=== PATIENT | male | born 1940 | race Caucasian/White ===

== ENCOUNTER 2022-09-02 12:36 | Emergency (ER) | payer OTHER, BC ==
[~2022-09-02] VITALS: Ht 182.9 cm; Wt 78.0 kg
[2022-09-02 12:48] VITALS: BP_SYST 160
[2022-09-02 15:00] VITALS: BP_SYST 142
== END 2022-09-02 15:00 | disposition home or self-care (01) ==
LOC: SED 12:36
DX: I10 Essential (primary) hypertension (principal); R51.9 Headache, unspecified; R42 Dizziness and giddiness; E11.9 Type 2 diabetes mellitus without complications; Z79.899 Other long term (current) drug therapy
CPT/HCPCS: 82962; 93005; 99283

== ENCOUNTER 2022-10-09 15:43 | Emergency (ER) | payer OTHER, BC ==
[~2022-10-09] VITALS: Ht 182.9 cm; Wt 68.0 kg
--- NOTE | 2022-10-09 16:48 | NUR ---
DR. BROWN IN TRIAGE EXAMINING PATIENT.
--- NOTE | 2022-10-09 17:02 | NUR ---
PATIENT BROUGTH IN COMPLAINING OF POSSIBLE BILATERAL DVTS WAS REFERRED BY ASSISTANT MANAGER AIRSIDE OPERATIONS. DENIES ANYU PAIN. NO SWELLING NOTED PAIN 0/10
[2022-10-09 17:22] VITALS: BP_SYST 167
[2022-10-09 17:30] LABS: BASOPHILS % (AUTO) 0.6 % (0.0-2.0); EOSINOPHILS # (AUTO) 0.2 K/uL (0.0-0.4); EOSINOPHILS % (AUTO) 3.4 % (0.0-4.0); HEMATOCRIT 39.3 % (36-54); HEMOGLOBIN 13.2 g/dL (14.0-18.0); LYMPHOCYTES # (AUTO) 1.6 K/uL (1.0-5.5); LYMPHOCYTES % (AUTO) 22.4 % (20.5-51.5); MEAN CORPUSCULAR HEMOGLOBIN 34 pg (27-31); MEAN CORPUSCULAR HGB CONC 34 % (32-36); MEAN CORPUSCULAR VOLUME 101 fL (79.0-98.0); MONOCYTES # (AUTO) 0.5 K/uL (0.0-1.0); MONOCYTES % (AUTO) 6.9 % (1.7-9.3); NEUTROPHILS # (AUTO) 4.8 K/uL (1.8-7.7); NEUTROPHILS % (AUTO) 66.7 % (40.0-70.0); PLATELET COUNT (AUTO) 187 K/uL (130-430); RED CELL DISTRIBUTION WIDTH 12.4 % (9.0-15.0); WHITE BLOOD COUNT (AUTO) 7.2 K/uL (4.8-10.8)
[2022-10-09 17:36] LABS: ANION GAP 9 (5-15); CALCIUM 8.7 mg/dL (8.4-11.0); CHLORIDE 101 mmol/L (98-107); CREATININE 1.21 mg/dL (0.55-1.30); GLUCOSE 176 mg/dL (70-99); UREA NITROGEN, BLOOD 21 mg/dL (8-21)
[2022-10-09 19:56] VITALS: BP_SYST 132
--- NOTE | 2022-10-09 19:56 | NUR ---
Patient given written and verbal discharge instructions and verbalizes understanding. ER MD discussed with patient the results and treatment provided. Patient in stable condition. ID arm band removed. NO RX given. Patient educated on pain management and to follow up with PMD. Pain Scale 0/10 Opportunity for questions provided and answered. Medication side effect fact sheet provided.
== END 2022-10-09 19:56 | disposition home or self-care (01) ==
LOC: SED 15:43
DX: I73.9 Peripheral vascular disease, unspecified (principal); E11.9 Type 2 diabetes mellitus without complications; I10 Essential (primary) hypertension; Z79.899 Other long term (current) drug therapy
CPT/HCPCS: 36415; 80048; 85025; 93970; 99284

== ENCOUNTER 2022-10-22 07:53 | Outpatient (CLI) | payer OTHER, BC | END 2022-10-22 19:04 | disposition home or self-care (01) | LOC: SUS 07:53 | DX: N40.0 Benign prostatic hyperplasia without lower urinary tract symptoms (principal); R33.9 Retention of urine, unspecified; J90 Pleural effusion, not elsewhere classified; R10.9 Unspecified abdominal pain | CPT/HCPCS: 76700-TC; 76856-TC ==

== ENCOUNTER 2023-07-25 09:20 | Inpatient (IN) | payer OTHER, BC ==
[~2023-07-25] VITALS: Ht 182.9 cm; Wt 79.4 kg
[2023-07-25 09:20] VITALS: BP_SYST 185; PULSE 52; RESP 18; TEMP 98.1; O2SAT 98
[2023-07-25] MEDS ORDERED: cloNIDine HCL 0.1 MG TABLET PO ONE (09:45)
[2023-07-25 09:58] LABS: BASOPHILS % (AUTO) 0.6 % (0.0-2.0); EOSINOPHILS # (AUTO) 0.2 K/uL (0.0-0.4); EOSINOPHILS % (AUTO) 2.5 % (0.0-4.0); HEMATOCRIT 38.3 % (36-54); HEMOGLOBIN 12.7 g/dL (14.0-18.0); LYMPHOCYTES # (AUTO) 1.2 K/uL (1.0-5.5); MEAN CORPUSCULAR HEMOGLOBIN 33 pg (27-31); MEAN CORPUSCULAR HGB CONC 33 % (32-36); MEAN CORPUSCULAR VOLUME 101 fL (79.0-98.0); MONOCYTES # (AUTO) 0.4 K/uL (0.0-1.0); MONOCYTES % (AUTO) 5.7 % (1.7-9.3); NEUTROPHILS # (AUTO) 4.5 K/uL (1.8-7.7); NEUTROPHILS % (AUTO) 72.2 % (40.0-70.0); PLATELET COUNT (AUTO) 194 K/uL (130-430); RED BLOOD CELL COUNT(AUTO) 3.81 MIL/uL (4.2-6.2); RED CELL DISTRIBUTION WIDTH 12.9 % (9.0-15.0); WHITE BLOOD COUNT (AUTO) 6.2 K/uL (4.8-10.8)
[2023-07-25 10:08] LABS: ANION GAP 8 (5-15); CALCIUM 8.8 mg/dL (8.4-11.0); CARBON DIOXIDE 27 mmol/L (23-29); CHLORIDE 102 mmol/L (98-107); GLUCOSE 234 mg/dL (74-106); POTASSIUM 4.8 mmol/L (3.5-5.1); SODIUM SERUM 137 mmol/L (136-145); UREA NITROGEN, BLOOD 22 mg/dL (8-21)
[2023-07-25 10:27] LABS: ALANINE AMINOTRANSFERASE 42 U/L (12-78); ALBUMIN 3.7 g/dL (3.4-4.8); ASPARTATE AMINOTRANSFERASE 20 U/L (10-37); TOTAL BILIRUBIN 0.4 mg/dL (0.0-1.0); TOTAL PROTEIN, SERUM 7.3 g/dL (6.4-8.3)
[2023-07-25] MEDS ORDERED: ASPIRIN 81 MG TABLET(ECOTRIN) PO ONE (10:30)
[2023-07-25] MEDS ORDERED: MORPHINE 2 MG/ML INJ. SYRINGE IVP PRN (12:45)
[2023-07-25] MEDS ORDERED: HYDROcodone/ACETAMIN 7.5-325 MG TAB PO PRN (12:45)
[2023-07-25] MEDS ORDERED: ONDANSETRON HCL 4 MG/2 ML VIAL IVP PRN (12:45)
[2023-07-25] MEDS ORDERED: ACETAMINOPHEN 325 MG TABLET PO PRN ×2 (12:45)
[2023-07-25] MEDS ORDERED: HUM10VIA3 SUBCUT (13:18)
[2023-07-25] MEDS ORDERED: VALS40TA12 PO (13:18)
[2023-07-25] MEDS ORDERED: METF-380 PO (13:18)
[2023-07-25] MEDS ORDERED: METO-540 PO (13:18)
[2023-07-25 14:10] VITALS: BP_SYST 159; PULSE 47; RESP 18; TEMP 96.9; O2SAT 99
[2023-07-25 14:22] LABS: BASOPHILS % (AUTO) 0.3 % (0.0-2.0); EOSINOPHILS # (AUTO) 0.2 K/uL (0.0-0.4); EOSINOPHILS % (AUTO) 2.6 % (0.0-4.0); HEMATOCRIT 41.1 % (36-54); HEMOGLOBIN 13.5 g/dL (14.0-18.0); LYMPHOCYTES # (AUTO) 1.6 K/uL (1.0-5.5); LYMPHOCYTES % (AUTO) 27.1 % (20.5-51.5); MEAN CORPUSCULAR HEMOGLOBIN 33 pg (27-31); MEAN CORPUSCULAR HGB CONC 33 % (32-36); MEAN CORPUSCULAR VOLUME 101 fL (79.0-98.0); MONOCYTES # (AUTO) 0.3 K/uL (0.0-1.0); MONOCYTES % (AUTO) 5.1 % (1.7-9.3); NEUTROPHILS # (AUTO) 3.7 K/uL (1.8-7.7); NEUTROPHILS % (AUTO) 64.9 % (40.0-70.0); PLATELET COUNT (AUTO) 183 K/uL (130-430); RED BLOOD CELL COUNT(AUTO) 4.08 MIL/uL (4.2-6.2); RED CELL DISTRIBUTION WIDTH 12.9 % (9.0-15.0); WHITE BLOOD COUNT (AUTO) 5.8 K/uL (4.8-10.8)
[2023-07-25 14:33] LABS: ANION GAP 9 (5-15); CALCIUM 9.6 mg/dL (8.4-11.0); CARBON DIOXIDE 28 mmol/L (23-29); CHLORIDE 104 mmol/L (98-107); CREATININE 1.21 mg/dL (0.55-1.30); GLUCOSE 127 mg/dL (74-106); POTASSIUM 4.4 mmol/L (3.5-5.1); SODIUM SERUM 141 mmol/L (136-145); UREA NITROGEN, BLOOD 21 mg/dL (8-21)
[2023-07-25 14:36] LABS: HEMOGLOBIN A1C 6.46 % (<5.7)
[2023-07-25 14:42] LABS: INR 1.1 (0.80-1.20)
[2023-07-25 14:52] LABS: AMYLASE 65 U/L (0-100); CHOLESTEROL 163 mg/dL (<200); FREE T4 (FREE THYROXINE) 0.9 ng/dL (0.6-1.6); HDL CHOLESTEROL 49 mg/dL (>45); LIPASE 13 U/L (16-77); PHOSPHORUS 3.6 mg/dL (2.7-4.5); THYROID STIMULATING HORMONE 1.13 uIu/mL (0.34-4.82); TRIGLYCERIDES 103 mg/dL (30-150)
[2023-07-25] MEDS ORDERED: LOSARTAN POTASSIUM 50 MG TABLET (COZAAR) PO ONE (15:15)
[2023-07-25] MEDS ORDERED: hydrALAZINE HCL 20 MG/ML VIAL IVP PRN (15:15)
[2023-07-25] MEDS ORDERED: INSULIN REGULAR, HUMAN 100 UNITS/ML, 3 ML VIAL (humuLIN R) SUBCUT PRN (15:30)
[2023-07-25 16:00] VITALS: BP_SYST 152; PULSE 48; RESP 16; TEMP 97.3; O2SAT 97
[2023-07-25] MEDS: NACL 0.9% 1,000 ML IV SCH (16:00)
[2023-07-25 19:15] LABS: BARBITURATE, URINE NEGATIVE (NEG <=200); BENZODIAZEPINE, URINE NEGATIVE (NEG <=150); CANNABINOID, URINE NEGATIVE (NEG <=50); COCAINE, URINE NEGATIVE (NEG <=150); METHAMPHETAMINES SCREEN,URINE NEGATIVE (NEG <=500); OPIATE, URINE NEGATIVE (NEG <=100); PHENCYCLIDINE SCREEN,URINE NEGATIVE (NEG <=25); UR TRICYCLIC ANTIDEPRESSANTS NEGATIVE (NEG <=300); URINE AMPHETAMINE NEGATIVE (NEG <=500); URINE METHADONE NEGATIVE (NEG <=200); URINE OXYCODONE SCREEN NEGATIVE (NEG <=100); URINE PROPOXYPHENE SCREEN NEGATIVE (NEG <=300)
[2023-07-25 20:00] VITALS: BP_SYST 135; PULSE 46; RESP 18; TEMP 97.8; O2SAT 98
[2023-07-25] MEDS: LOSARTAN POTASSIUM 50 MG TABLET (COZAAR) PO SCH (20:48)
[2023-07-25] MEDS: DOCUSATE SODIUM 100 MG CAPSULE PO SCH (20:48)
[2023-07-25] MEDS ORDERED: MELATONIN 5 MG TABLET PO SCH (21:00)
[2023-07-26] MEDS: NACL 0.9% 1,000 ML IV SCH ×2 (02:00→08:45)
[2023-07-26 02:17] VITALS: BP_SYST 136; PULSE 80; RESP 18; TEMP 97.7; O2SAT 98
[2023-07-26 06:38] LABS: BASOPHILS % (AUTO) 0.5 % (0.0-2.0); EOSINOPHILS # (AUTO) 0.2 K/uL (0.0-0.4); EOSINOPHILS % (AUTO) 3.4 % (0.0-4.0); HEMATOCRIT 35.6 % (36-54); HEMOGLOBIN 11.7 g/dL (14.0-18.0); LYMPHOCYTES # (AUTO) 1.3 K/uL (1.0-5.5); LYMPHOCYTES % (AUTO) 22.3 % (20.5-51.5); MEAN CORPUSCULAR HEMOGLOBIN 33 pg (27-31); MEAN CORPUSCULAR HGB CONC 33 % (32-36); MEAN CORPUSCULAR VOLUME 100 fL (79.0-98.0); MONOCYTES # (AUTO) 0.4 K/uL (0.0-1.0); MONOCYTES % (AUTO) 7.7 % (1.7-9.3); NEUTROPHILS # (AUTO) 3.8 K/uL (1.8-7.7); NEUTROPHILS % (AUTO) 66.1 % (40.0-70.0); PLATELET COUNT (AUTO) 173 K/uL (130-430); RED BLOOD CELL COUNT(AUTO) 3.55 MIL/uL (4.2-6.2); RED CELL DISTRIBUTION WIDTH 12.9 % (9.0-15.0); WHITE BLOOD COUNT (AUTO) 5.8 K/uL (4.8-10.8)
[2023-07-26 06:44] LABS: ALANINE AMINOTRANSFERASE 32 U/L (12-78); ALBUMIN 3.1 g/dL (3.4-4.8); ANION GAP 8 (5-15); ASPARTATE AMINOTRANSFERASE 14 U/L (10-37); CALCIUM 8.7 mg/dL (8.4-11.0); CARBON DIOXIDE 26 mmol/L (23-29); CHLORIDE 105 mmol/L (98-107); CREATININE 1.08 mg/dL (0.55-1.30); GLUCOSE 157 mg/dL (74-106); POTASSIUM 3.9 mmol/L (3.5-5.1); SODIUM SERUM 139 mmol/L (136-145); TOTAL BILIRUBIN 0.5 mg/dL (0.0-1.0); TOTAL PROTEIN, SERUM 6.2 g/dL (6.4-8.3); UREA NITROGEN, BLOOD 20 mg/dL (8-21)
[2023-07-26 08:00] VITALS: BP_SYST 138; PULSE 48; RESP 16; TEMP 98.1; O2SAT 100; O2SAT 98
[2023-07-26] MEDS ORDERED: ASPIRIN 81 MG TABLET(ECOTRIN) PO SCH (09:00)
[2023-07-26] MEDS ORDERED: ATORVASTATIN 20 MG TABLET PO SCH (09:00)
[2023-07-26] MEDS: DOCUSATE SODIUM 100 MG CAPSULE PO SCH (09:24)
[2023-07-26] MEDS: LOSARTAN POTASSIUM 50 MG TABLET (COZAAR) PO SCH (09:24)
[2023-07-26 11:22] VITALS: BP_SYST 143; PULSE 51; RESP 16; TEMP 97.6; O2SAT 96
[2023-07-26] MEDS ORDERED: LIP20 PO (14:06)
[2023-07-26] MEDS ORDERED: LOSA-413 PO (14:06)
[2023-07-26] MEDS ORDERED: ASPI-1393 PO (14:06)
[2023-07-26 15:05] VITALS: BP_SYST 143; PULSE 51; RESP 16; TEMP 97.6; O2SAT 96
[2023-07-26 15:11] VITALS: BP_SYST 147; PULSE 56; RESP 16; TEMP 97.1; O2SAT 99
== END 2023-07-26 15:45 | disposition home or self-care (01) | DRG 305 ==
LOC: SED 09:20 → STU 12:36 → SMU 13:55 → STU 14:42
PROVIDERS: ADMIT Student in an Organized Health Care Education/Training Program; ATTEND Student in an Organized Health Care Education/Training Program
DX: I16.1 Hypertensive emergency (principal); I10 Essential (primary) hypertension; R00.1 Bradycardia, unspecified; E11.9 Type 2 diabetes mellitus without complications; N40.0 Benign prostatic hyperplasia without lower urinary tract symptoms; Z79.4 Long term (current) use of insulin
CPT/HCPCS: 36415; 70450-TC; 71045; 76376; 80048; 80053; 80061; 80307; 82140; 82150; 82962; 83037; 83605; 83690; 83735; 83880; 84100; 84439; 84443; 84479; 84484; 85025; 85610-TC; 85730-TC; 93005; 93306; 99285; G0378

== ENCOUNTER 2024-02-15 16:53 | Inpatient (IN) | payer OTHER, BC ==
[~2024-02-15] VITALS: Ht 185.4 cm; Wt 91.2 kg
[2024-02-15] MEDS: HEPARIN SODIUM,PORCINE 5,000 UNITS/ML VIAL SUBCUT SCH (01:52)
[~2024-02-15 16:53] MED LIST: ASPI-1393 PO; HUM10VIA3 SUBCUT; LIP20 PO; LOSA-413 PO; METF-380 PO
[2024-02-15 17:01] VITALS: BP_SYST 147; PULSE 60; RESP 15; TEMP 97.4; O2SAT 97
[2024-02-15 17:38] LABS: BASOPHILS # (AUTO) 0.1 K/uL (0.0-0.2); BASOPHILS % (AUTO) 1.1 % (0.0-2.0); EOSINOPHILS # (AUTO) 0.3 K/uL (0.0-0.4); EOSINOPHILS % (AUTO) 3.7 % (0.0-4.0); HEMATOCRIT 37.5 % (36-54); HEMOGLOBIN 12.8 g/dL (14.0-18.0); LYMPHOCYTES # (AUTO) 1.8 K/uL (1.0-5.5); LYMPHOCYTES % (AUTO) 26.3 % (20.5-51.5); MEAN CORPUSCULAR HEMOGLOBIN 34 pg (27-31); MEAN CORPUSCULAR HGB CONC 34 % (32-36); MEAN CORPUSCULAR VOLUME 99 fL (79.0-98.0); MONOCYTES # (AUTO) 0.4 K/uL (0.0-1.0); MONOCYTES % (AUTO) 6.2 % (1.7-9.3); NEUTROPHILS # (AUTO) 4.2 K/uL (1.8-7.7); NEUTROPHILS % (AUTO) 62.7 % (40.0-70.0); PLATELET COUNT (AUTO) 180 K/uL (130-430); RED CELL DISTRIBUTION WIDTH 12.9 % (9.0-15.0); WHITE BLOOD COUNT (AUTO) 6.7 K/uL (4.8-10.8)
[2024-02-15 19:05] LABS: ANION GAP 13 (5-15); CALCIUM 8.9 mg/dL (8.4-11.0); CARBON DIOXIDE 23 mmol/L (23-29); CHLORIDE 105 mmol/L (98-107); CREATININE 1.22 mg/dL (0.55-1.30); GLUCOSE 127 mg/dL (74-106); POTASSIUM 4.4 mmol/L (3.5-5.1); SODIUM SERUM 141 mmol/L (136-145); UREA NITROGEN, BLOOD 15 mg/dL (8-21)
[2024-02-15] MEDS ORDERED: AMLO5TAB92 PO (19:57)
[2024-02-15] MEDS ORDERED: MUPIROCIN 2% TOPICAL OINTMENT 22 GM NS PRN (20:00)
[2024-02-15] MEDS ORDERED: ONDANSETRON HCL 4 MG/2 ML VIAL IVP PRN (20:00)
[2024-02-15] MEDS ORDERED: MAGNESIUM SULFATE 50 ML IV PRN (20:00)
[2024-02-15] MEDS ORDERED: DEXTROSE 50% JECT 50 ML DISP.SYRIN IVP PRN (20:00)
[2024-02-15] MEDS ORDERED: ZOLPIDEM TARTRATE 5 MG TABLET PO PRN (20:00)
[2024-02-15] MEDS ORDERED: MORPHINE 2 MG/ML INJ. SYRINGE IVP PRN ×2 (20:00)
[2024-02-15] MEDS ORDERED: DOCUSATE SODIUM 100 MG CAPSULE PO PRN (20:00)
[2024-02-15] MEDS ORDERED: POTASSIUM CHLORIDE 20 MEQ TABLET.ER PO PRN (20:00)
[2024-02-15] MEDS ORDERED: ACETAMINOPHEN 500 MG TABLET PO PRN ×3 (20:45)
[2024-02-15] MEDS: LOSARTAN POTASSIUM 50 MG TABLET (COZAAR) ONE (21:53)
[2024-02-15] MEDS: LOSARTAN POTASSIUM 50 MG TABLET (COZAAR) PO SCH (22:03)
[2024-02-15 23:11] LABS: INR 1.1 (0.80-1.20); PROTHROMBIN TIME 11.3 SECS (9.5-12.5)
[2024-02-16] VITALS (7 sets, daily range): BP systolic 136–182; PULSE 53–73; RESP 16–18; TEMP 97.6–98.1; O2SAT 96–100
[2024-02-16 04:28] LABS: EOSINOPHILS # (AUTO) 0.3 K/uL (0.0-0.4); EOSINOPHILS % (AUTO) 5.1 % (0.0-4.0); HEMATOCRIT 35.1 % (36-54); HEMOGLOBIN 11.9 g/dL (14.0-18.0); LYMPHOCYTES # (AUTO) 1.4 K/uL (1.0-5.5); LYMPHOCYTES % (AUTO) 27.4 % (20.5-51.5); MEAN CORPUSCULAR HEMOGLOBIN 34 pg (27-31); MEAN CORPUSCULAR HGB CONC 34 % (32-36); MEAN CORPUSCULAR VOLUME 99 fL (79.0-98.0); MONOCYTES # (AUTO) 0.4 K/uL (0.0-1.0); MONOCYTES % (AUTO) 7.6 % (1.7-9.3); NEUTROPHILS % (AUTO) 58.9 % (40.0-70.0); PLATELET COUNT (AUTO) 162 K/uL (130-430); RED BLOOD CELL COUNT(AUTO) 3.53 MIL/uL (4.2-6.2); RED CELL DISTRIBUTION WIDTH 13.3 % (9.0-15.0)
[2024-02-16] MEDS: cloNIDine HCL 0.1 MG TABLET PO PRN (04:55)
[2024-02-16 05:04] LABS: ANION GAP 9 (5-15); CALCIUM 8.6 mg/dL (8.4-11.0); CARBON DIOXIDE 25 mmol/L (23-29); CHLORIDE 108 mmol/L (98-107); CREATININE 1.13 mg/dL (0.55-1.30); GLUCOSE 176 mg/dL (74-106); SODIUM SERUM 142 mmol/L (136-145); UREA NITROGEN, BLOOD 17 mg/dL (8-21)
[2024-02-16] MEDS: ASPIRIN 81 MG TABLET(ECOTRIN) PO SCH (09:59)
[2024-02-16] MEDS: ATORVASTATIN 20 MG TABLET PO SCH (10:00)
[2024-02-16] MEDS: INSULIN LISPRO SLIDING SCALE 100 UNITS/ML, 3 ML VIAL (humaLOG) SUBCUT PRN (11:40)
[2024-02-17] VITALS (9 sets, daily range): BP systolic 148–202; PULSE 58–69; RESP 16–20; TEMP 96.8–98.8; O2SAT 97–100
[2024-02-17 04:42] LABS: BASOPHILS % (AUTO) 0.6 % (0.0-2.0); EOSINOPHILS # (AUTO) 0.3 K/uL (0.0-0.4); EOSINOPHILS % (AUTO) 4.3 % (0.0-4.0); HEMATOCRIT 35.9 % (36-54); HEMOGLOBIN 12.4 g/dL (14.0-18.0); LYMPHOCYTES # (AUTO) 1.9 K/uL (1.0-5.5); MEAN CORPUSCULAR HEMOGLOBIN 34 pg (27-31); MEAN CORPUSCULAR HGB CONC 35 % (32-36); MEAN CORPUSCULAR VOLUME 99 fL (79.0-98.0); MONOCYTES # (AUTO) 0.5 K/uL (0.0-1.0); MONOCYTES % (AUTO) 6.4 % (1.7-9.3); NEUTROPHILS # (AUTO) 4.4 K/uL (1.8-7.7); NEUTROPHILS % (AUTO) 61.7 % (40.0-70.0); PLATELET COUNT (AUTO) 188 K/uL (130-430); RED BLOOD CELL COUNT(AUTO) 3.62 MIL/uL (4.2-6.2); RED CELL DISTRIBUTION WIDTH 13.2 % (9.0-15.0); WHITE BLOOD COUNT (AUTO) 7.2 K/uL (4.8-10.8)
[2024-02-17 04:52] LABS: ANION GAP 13 (5-15); CALCIUM 8.7 mg/dL (8.4-11.0); CARBON DIOXIDE 22 mmol/L (23-29); CHLORIDE 106 mmol/L (98-107); GLUCOSE 148 mg/dL (74-106); POTASSIUM 3.7 mmol/L (3.5-5.1); SODIUM SERUM 141 mmol/L (136-145); UREA NITROGEN, BLOOD 20 mg/dL (8-21)
[2024-02-17] MEDS: METOPROLOL TARTRATE 25 MG TABLET PO ONE (12:14)
[2024-02-17] MEDS: hydrALAZINE HCL 25 MG TABLET PO ONE (12:18)
[2024-02-17] MEDS: LORazepam 2 MG/ML VIAL IVP PRN (12:21)
[2024-02-17] MEDS: hydrALAZINE HCL 25 MG TABLET PO SCH (15:12)
[2024-02-17] MEDS: METOPROLOL TARTRATE 25 MG TABLET PO SCH (20:12)
[2024-02-18 01:27] VITALS: BP_SYST 151; PULSE 65; RESP 18; TEMP 98.4; O2SAT 98
[2024-02-18 04:03] LABS: BASOPHILS % (AUTO) 0.6 % (0.0-2.0); EOSINOPHILS # (AUTO) 0.3 K/uL (0.0-0.4); EOSINOPHILS % (AUTO) 3.4 % (0.0-4.0); HEMATOCRIT 34.1 % (36-54); HEMOGLOBIN 11.9 g/dL (14.0-18.0); LYMPHOCYTES # (AUTO) 2.1 K/uL (1.0-5.5); LYMPHOCYTES % (AUTO) 25.9 % (20.5-51.5); MEAN CORPUSCULAR HEMOGLOBIN 35 pg (27-31); MEAN CORPUSCULAR HGB CONC 35 % (32-36); MEAN CORPUSCULAR VOLUME 100 fL (79.0-98.0); MONOCYTES # (AUTO) 0.5 K/uL (0.0-1.0); MONOCYTES % (AUTO) 6.5 % (1.7-9.3); NEUTROPHILS % (AUTO) 63.6 % (40.0-70.0); PLATELET COUNT (AUTO) 193 K/uL (130-430); RED BLOOD CELL COUNT(AUTO) 3.42 MIL/uL (4.2-6.2); RED CELL DISTRIBUTION WIDTH 13.2 % (9.0-15.0); WHITE BLOOD COUNT (AUTO) 7.9 K/uL (4.8-10.8)
[2024-02-18 04:05] LABS: ANION GAP 10 (5-15); CALCIUM 8.5 mg/dL (8.4-11.0); CARBON DIOXIDE 26 mmol/L (23-29); CHLORIDE 104 mmol/L (98-107); CREATININE 1.49 mg/dL (0.55-1.30); GLUCOSE 141 mg/dL (74-106); POTASSIUM 3.7 mmol/L (3.5-5.1); SODIUM SERUM 140 mmol/L (136-145); UREA NITROGEN, BLOOD 26 mg/dL (8-21)
[2024-02-18 08:00] VITALS: BP_SYST 134; PULSE 59; RESP 17; TEMP 97.9; O2SAT 96
[2024-02-18] MEDS ORDERED: CLON0.1T PO (09:52)
[2024-02-18 11:01] VITALS: BP_SYST 134; PULSE 59; RESP 17; TEMP 97.9; O2SAT 96
== END 2024-02-18 11:15 | disposition home or self-care (01) | DRG 73 ==
LOC: SED 16:53 → STU 20:09 → SMU 02-18 03:30
PROVIDERS: ADMIT General Practice; ATTEND General Practice
DX: G90.9 Disorder of the autonomic nervous system, unspecified (principal); I21.A1 Myocardial infarction type 2; I16.0 Hypertensive urgency; E11.65 Type 2 diabetes mellitus with hyperglycemia; E78.5 Hyperlipidemia, unspecified; E11.51 Type 2 diabetes mellitus with diabetic peripheral angiopathy without gangrene; I10 Essential (primary) hypertension; Z79.899 Other long term (current) drug therapy; Z91.199 Patient's noncompliance with other medical treatment and regimen due to unspecified reason
CPT/HCPCS: 36415; 71045; 80048; 82948; 83037; 83735; 83880; 84484; 85025; 85610; 85730; 93005; 99285; G0378; J1644; J2060